=== PATIENT | female | born 1990 ===

== ENCOUNTER 2019-02-01 03:47 | Inpatient (IN) | payer BC ==
[2019-02-01] MEDS ORDERED: Butorphanol 1 MG/ML SDV IVPUSH PRN (17:22)
[2019-02-01] MEDS ORDERED: Misoprostol 200 MCG Tab PO PRN (17:22)
[2019-02-01] MEDS ORDERED: Carboprost Tromethamine 250 MCG/1 ML Amp IM PRN (17:22)
[2019-02-01] MEDS ORDERED: Sodium Chloride 0.9% 10 ML SDV IV PRN (17:22)
[2019-02-01] MEDS ORDERED: Sodium Chloride 0.9% 10 ML Syringe FLUSH PRN (17:22)
[2019-02-01] MEDS ORDERED: Water For Irrigation,Sterile 1,000 ML Container IRR PRN (17:22)
[2019-02-01] MEDS ORDERED: Sodium Chloride 0.9% 2.5 ML Syringe FLUSH PRN (17:22)
[2019-02-01] MEDS ORDERED: Ondansetron 4 MG/2 ML SDV IVPUSH PRN (17:22)
[2019-02-01] MEDS ORDERED: Lidocaine 1% 50 ML MDV INJECT PRN (17:22)
[2019-02-01] MEDS ORDERED: Tranexamic Acid 1,000 MG in Sodium Chloride 0.9% 100 ML IV PRN (17:22)
[2019-02-01] MEDS ORDERED: Methylergonovine 0.2 MG/1 ML Amp IM PRN (17:22)
[2019-02-01] MEDS ORDERED: Nalbuphine 10 MG/1 ML Vial IVPUSH PRN (17:22)
[2019-02-01] MEDS ORDERED: Terbutaline 1 MG/ML SDV SUBCUT PRN (17:26)
[2019-02-01] MEDS ORDERED: Oxytocin/0.9 % Sodium Chloride 30 UNIT/500 ML BAG IV SCH ×2 (17:30)
[2019-02-01] MEDS: Lactated Ringers 1,000 ML IV SCH (17:51)
[2019-02-01] MEDS ORDERED: Oxytocin/0.9 % Sodium Chloride 30 UNIT/500 ML BAG ONE (17:54)
--- NOTE | 2019-02-02 00:23 | PCM.PREANE ---
Preanesthetic Assessment - Anesthesia/Transfusion/Family Hx Anesthesia History: Prior Anesthesia Without Reaction Family History of Anesthesia Reaction: No Transfusion History: No Prior Transfusion(s) - Review of Systems General: No Symptoms Pulmonary: No Symptoms Cardiovascular: No Symptoms Gastrointestinal: No Symptoms Neurological: No Symptoms Other: Reports: None - Physical Assessment Height: 5 ft 7 in Weight: 108.862 kg ASA Class: 2 Mental Status: Alert & Oriented x3 Airway Class: Mallampati = 2 Dentition: Reports: Normal Dentition Thyro-Mental Finger Breadths: 3 Mouth Opening Finger Breadths: 3 ROM/Head Extension: Full Lungs: Clear to Auscultation, Normal Respiratory Effort Cardiovascular: Regular Rate, Regular Rhythm - Lab Values: Laboratory Last Values WBC 11.18 K/uL (4.0-11.0) H 02/01/19 17:40 RBC 4.18 M/uL (4.30-5.90) L 02/01/19 17:40 Hgb 13.0 g/dL (12.0-16.0) 02/01/19 17:40 Hct 38.0 % (36.0-46.0) 02/01/19 17:40 MCV 90.9 fL (80.0-98.0) 02/01/19 17:40 MCH 31.1 pg (27.0-32.0) 02/01/19 17:40 MCHC 34.2 g/dL (31.0-37.0) 02/01/19 17:40 RDW Std Deviation 46.5 fl (28.0-62.0) 02/01/19 17:40 RDW Coeff of Liz 14 % (11.0-15.0) 02/01/19 17:40 Plt Count 222 K/uL (150-400) 02/01/19 17:40 MPV 10.60 fL (7.40-12.00) 02/01/19 17:40 Nucleated RBC % 0.0 /100WBC 02/01/19 17:40 Nucleated RBCs # 0 K/uL 02/01/19 17:40 Blood Type O POSITIVE 02/01/19 17:40 Antibody Screen NEGATIVE 02/01/19 17:40 - Allergies Allergies/Adverse Reactions: Allergies Allergy/AdvReac Type Severity Reaction Status Date / Time No Known Allergies Allergy Verified 02/01/19 17:22 - Acknowledgements Anesthesia Type Planned: Epidural Pt an Appropriate Candidate for the Planned Anesthesia: Yes Alternatives and Risks of Anesthesia Discussed w Pt/Guardian: Yes Pt/Guardian Understands and Agrees with Anesthesia Plan: Yes PreAnesthesia Questionnaire - Past Health History Medical/Surgical History: Denies Medical/Surgical History HEENT History: Reports: None Cardiovascular History: Reports: None Respiratory History: Reports: None Gastrointestinal History: Reports: None Genitourinary History: Reports: None [employer] History: Reports: : 3 Para: 1 LMP (Approximate): Musculoskeletal History: Reports: None Neurological History: Reports: None Psychiatric History: Reports: None Endocrine/Metabolic History: Reports: Obesity/BMI 30+ Hematologic History: Reports: None Immunologic History: Reports: None Oncologic (Cancer) History: Reports: None Dermatologic History: Reports: None - Infectious Disease History 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) - Past Surgical History HEENT Surgical History: Reports: Tonsillectomy (2005) Other HEENT Surgeries/Procedures: 1995 Neck Cyst removed GI Surgical History: Reports: Cholecystectomy (2016) - SUBSTANCE USE Smoking Status *Q: Former Smoker Second Hand Smoke Exposure: No Recreational Drug Use History: No - CURRENT (IN HOUSE) MEDS Current Meds: Current Medications Butorphanol Tartrate (Stadol) 1 mg IVPUSH Q1H PRN PRN Reason: Pain Carboprost Tromethamine (Hemabate Ds) 250 mcg IM ASDIRECTED PRN PRN Reason: Post Hemorrhage Lactated Ringer's (Ringers, Lactated) 1,000 mls @ 150 mls/hr IV ASDIRECTED MONSE Last Admin: 02/01/19 17:51 Dose: 150 mls/hr Oxytocin/Sodium Chloride (Oxytocin 30 Unit/500 Ml-Ns) 30 unit in 500 mls @ 500 mls/hr IV TITRATE MONSE Tranexamic Acid 1,000 mg/ (Sodium Chloride) 110 mls @ 660 mls/hr IV ONETIME PRN PRN Reason: Bleeding Oxytocin/Sodium Chloride (Oxytocin 30 Unit/500 Ml-Ns) 30 unit in 500 mls @ 2 mls/hr IV TITRATE MONSE; Protocol Last Titration: 02/01/19 19:15 Dose: 8 munits/min, 8 mls/hr Lidocaine HCl (Xylocaine 1%) 50 ml INJECT ONETIME PRN PRN Reason: Laceration repair Methylergonovine Maleate (Methergine) 0.2 mg IM ASDIRECTED PRN PRN Reason: Post Hemorrhage Misoprostol (Cytotec) 200 mcg PO ONETIME PRN PRN Reason: Post Hemorrhage Nalbuphine HCl (Nubain) 10 mg IVPUSH Q1H PRN PRN Reason: Pain (severe 7-10) Ondansetron HCl (Zofran) 4 mg IVPUSH Q6H PRN PRN Reason: Nausea/Vomiting Sodium Chloride (Saline Flush) 10 ml FLUSH ASDIRECTED PRN PRN Reason: Keep Vein Open Sodium Chloride (Saline Flush) 2.5 ml FLUSH ASDIRECTED PRN PRN Reason: Keep Vein Open Sodium Chloride (Normal Saline) 10 ml IV ASDIRECTED PRN PRN Reason: IV Use Sterile Water (Sterile Water For Irrigation) 1,000 ml IRR ASDIRECTED PRN PRN Reason: delivery Terbutaline Sulfate (Brethine) 0.25 mg SUBCUT ASDIRECTED PRN PRN Reason: Tacysystole Discontinued Medications Oxytocin/Sodium Chloride (Oxytocin 30 Unit/500 Ml-Ns) Confirm Administered Dose 30 unit in 500 mls @ as directed .ROUTE .[facility] ONE Stop: 02/01/19 17:55
[2019-02-02] MEDS: Lactated Ringers 1,000 ML IV SCH ×2 (01:06→02:23)
[2019-02-02] MEDS ORDERED: Docusate Sodium 100 MG Cap PO PRN (04:24)
[2019-02-02] MEDS ORDERED: Witch Hazel Medicated Pads 40/Jar TOP PRN (04:24)
[2019-02-02] MEDS ORDERED: Acetaminophen 500 MG Tab PO PRN ×2 (04:24)
[2019-02-02] MEDS ORDERED: Bisacodyl 10 MG Supp RECTAL PRN (04:24)
[2019-02-02] MEDS ORDERED: Lanolin 100% Cream 7 GM Tube TOP PRN (04:24)
[2019-02-02] MEDS ORDERED: Ibuprofen 400 MG Tab PO PRN (04:24)
[2019-02-02] MEDS ORDERED: Benzocaine/Menthol 20%-0.5% Spray 78 GM Cannister TOP PRN (04:24)
--- NOTE | 2019-02-02 04:59 | OR ---
SURGEON: Kevin Mills MD DATE OF PROCEDURE: 02/02/2019 INDICATION: A 28-year-old G3, P1-0-1-1, admitted for elective induction of labor at 39 week 2 days. was complicated by history of HSV-2. No outbreaks during this . She had induction with Pitocin and spontaneous rupture of membranes. She received an epidural, with category I tracing. She progressed to fully dilated and started pushing with contractions. PREOPERATIVE DIAGNOSES: 1. Intrauterine at 39 weeks 2 days. 2. Active second stage of labor. POSTOPERATIVE DIAGNOSES: 1. Intrauterine at 39 weeks 2 days. 2. Active second stage of labor. PRIMARY SURGEON: Kevin Mills MD. ANESTHESIA: Epidural ESTIMATED BLOOD LOSS: 300 mL. FINDINGS: Gage intrauterine in cephalic presentation at 39 week and 2 days. Male fetus, weight of 8 pounds 14 ounces, score of 8 and 9. PROCEDURE IN DETAIL: The patient proceeded to push with contractions for about 35 minutes with good descend. Category I tracing with early decelerations. The head delivered over intact perineum in occiput anterior position, restituted ROT. Tight nuchal cord x1 was noted. Anterior shoulder was delivered easily followed by posterior shoulder and remaining body. Nuchal cord was reduced after delivery. Baby was pink and crying after delivery and moving all extremities. Baby was placed on maternal chest and assessed by awaiting nursery staff. The cord was clamped and cut after 60 seconds and no longer pulsating. Cord gases were obtained. Placenta was delivered by gentle traction on the umbilical cord. First-degree perineal laceration was noted and repaired with a figure of eight stitch with 3- 0 Vicryl. Hemostasis was confirmed. The uterus was found to be boggy in the lower uterine segment with moderate bleeding. Bimanual massage was performed and small clots removed from the lower uterine segment. Methergine x1 was given IM. The uterus then started to become firm and bleeding was minimal. The patient tolerated the procedure well and was given instructions. ISABELLE / OZZIE /[id number] MTDTalib
[2019-02-02] MEDS: Ibuprofen 800 MG Tab PO PRN ×2 (12:01→18:54)
--- NOTE | 2019-02-03 06:10 | PCM48HPAN ---
Post Anesthesia Note - EVALUATION WITHIN 48HRS OF ANESTHETIC Vital Signs in Normal Range: Yes Patient Participated in Evaluation: Yes Respiratory Function Stable: Yes Airway Patent: Yes Cardiovascular Function Stable: Yes Hydration Status Stable: Yes Pain Control Satisfactory: Yes Nausea and Vomiting Control Satisfactory: Yes Mental Status Recovered: Yes Vital Signs: Last Vital Signs Temp 36.4 C 02/03/19 04:11 Pulse 89 02/03/19 04:11 Resp 17 02/03/19 04:11 BP 124/77 02/03/19 04:11 Pulse Ox 97 02/03/19 04:11 - COMMENTS/OBSERVATIONS Free Text/Narrative:: The patient tolerated the procedure well. There were no apparent anesthetic complications at this time.
[2019-02-03] MEDS: Ibuprofen 800 MG Tab PO PRN (08:14)
--- NOTE | 2019-02-03 08:40 | PCM.PNPP ---
- General Info Date of Service: 02/03/19 Functional Status: Reports: Pain Controlled, Tolerating Diet, Ambulating, Urinating - Review of Systems General: Reports: No Symptoms HEENT: Reports: No Symptoms Pulmonary: Reports: No Symptoms Cardiovascular: Reports: No Symptoms Gastrointestinal: Reports: No Symptoms Genitourinary: Reports: No Symptoms Musculoskeletal: Reports: No Symptoms Skin: Reports: No Symptoms Neurological: Reports: No Symptoms Psychiatric: Reports: No Symptoms - General Info Date of Service: 02/03/19 - Patient Data Vital Signs - Most Recent: Last Vital Signs Temp 36.4 C 02/03/19 04:11 Pulse 89 02/03/19 04:11 Resp 17 02/03/19 04:11 BP 124/77 02/03/19 04:11 Pulse Ox 97 02/03/19 04:11 Weight - Most Recent: 108.862 kg Lab Results - Last 24 Hours: Laboratory Results - last 24 hr 02/03/19 Range/Units 05:09 Hgb 11.5 L (12.0-16.0) g/dL Hct 34.7 L (36.0-46.0) % Med Orders - Current: Current Medications Acetaminophen (Tylenol Extra Strength) 500 mg PO Q4H PRN PRN Reason: Pain Acetaminophen (Tylenol Extra Strength) 1,000 mg PO Q4H PRN PRN Reason: Pain Last Admin: 02/02/19 15:06 Dose: 1,000 mg Benzocaine/Menthol (Dermoplast Pain Relief 20%-0.5% [place]) 78 gm TOP ASDIRECTED PRN PRN Reason: Perineal Comfort Measure Last Admin: 02/02/19 16:07 Dose: 1 canister Bisacodyl (Dulcolax) 10 mg RECTAL ONETIME PRN PRN Reason: Constipation Butorphanol Tartrate (Stadol) 1 mg IVPUSH Q1H PRN PRN Reason: Pain Carboprost Tromethamine (Hemabate Ds) 250 mcg IM ASDIRECTED PRN PRN Reason: Post Hemorrhage Docusate Sodium (Colace) 100 mg PO BID PRN PRN Reason: Constipation Last Admin: 02/03/19 08:15 Dose: 100 mg Emollient Ointment (Lansinoh Hpa) 0 gm TOP ASDIRECTED PRN PRN Reason: Sore Nipples Lactated Ringer's (Ringers, Lactated) 1,000 mls @ 150 mls/hr IV ASDIRECTED MONSE Last Admin: 02/02/19 02:23 Dose: 150 mls/hr Oxytocin/Sodium Chloride (Oxytocin 30 Unit/500 Ml-Ns) 30 unit in 500 mls @ 500 mls/hr IV TITRATE MONSE Tranexamic Acid 1,000 mg/ (Sodium Chloride) 110 mls @ 660 mls/hr IV ONETIME PRN PRN Reason: Bleeding Oxytocin/Sodium Chloride (Oxytocin 30 Unit/500 Ml-Ns) 30 unit in 500 mls @ 2 mls/hr IV TITRATE [facility]; Protocol Last Titration: 02/02/19 03:48 Dose: 999 munits/min, 999 mls/hr Ibuprofen (Motrin) 400 mg PO Q4H PRN PRN Reason: Pain Ibuprofen (Motrin) 800 mg PO Q6H PRN PRN Reason: Pain Last Admin: 02/03/19 08:14 Dose: 800 mg Lidocaine HCl (Xylocaine 1%) 50 ml INJECT ONETIME PRN PRN Reason: Laceration repair Methylergonovine Maleate (Methergine) 0.2 mg IM ASDIRECTED PRN PRN Reason: Post Hemorrhage Last Admin: 02/02/19 03:59 Dose: 0.2 mg Misoprostol (Cytotec) 200 mcg PO ONETIME PRN PRN Reason: Post Hemorrhage Nalbuphine HCl (Nubain) 10 mg IVPUSH Q1H PRN PRN Reason: Pain (severe 7-10) Ondansetron HCl (Zofran) 4 mg IVPUSH Q6H PRN PRN Reason: Nausea/Vomiting Sodium Chloride (Saline Flush) 10 ml FLUSH ASDIRECTED PRN PRN Reason: Keep Vein Open Sodium Chloride (Saline Flush) 2.5 ml FLUSH ASDIRECTED PRN PRN Reason: Keep Vein Open Sodium Chloride (Normal Saline) 10 ml IV ASDIRECTED PRN PRN Reason: IV Use Sterile Water (Sterile Water For Irrigation) 1,000 ml IRR ASDIRECTED PRN PRN Reason: delivery Terbutaline Sulfate (Brethine) 0.25 mg SUBCUT ASDIRECTED PRN PRN Reason: Tacysystole Witch Angelita (Tucks) 1 pad TOP ASDIRECTED PRN PRN Reason: comfort care Discontinued Medications Oxytocin/Sodium Chloride (Oxytocin 30 Unit/500 Ml-Ns) Confirm Administered Dose 30 unit in 500 mls @ as directed .ROUTE .[facility]-MED ONE Stop: 02/01/19 17:55 Fentanyl/Bupivacaine HCl (Olqdnsuo-Chlat-Mq 2 Mcg/Ml-0.125%) Confirm Administered Dose 100 mls @ as directed .ROUTE .[facility]-MED ONE Stop: 02/02/19 00:26 - Interaction Disposition, : in Room with Family Infant Interaction: Holding Feeding: Breastfed ; Nursed Well - Recovery Exam Fundal Tone: Firms with Massage Fundal Level: At Umbilicus Fundal Placement: Midline Lochia Amount: Scant, Small Lochia Color: Rubra/Red Episiotomy/Laceration: Approximated Bladder Status: Voiding - Exam General: Alert, Oriented HEENT: Pupils Equal Neck: Supple Lungs: Normal Respiratory Effort Cardiovascular: Regular Rhythm GI/Abdominal Exam: Soft, No Organomegaly, No Distention Extremities: Normal Inspection, Non-Tender, No Pedal Edema Skin: Warm, Dry, Intact Neurological: No New Focal Deficit Psy/Mental Status: Alert, Normal Affect, Normal Mood - Problem List Review Problem List Initiated/Reviewed/Updated: Yes - Assessment Assessment:: PPD# 1 after , stable minimal lochia, tolerating diet, would like to go home today. - Plan Plan:: Dismiss to home, discharge instructions reviewed.
== END 2019-02-03 11:55 | disposition home or self-care (01) | DRG 560 ==
LOC: MW.OB 03:47 → OBSVTOIN 02-02 03:47 → INTOOBSV 02-02 03:51 → MW.OB 02-02 06:44
PROVIDERS: ADMIT Obstetrics & Gynecology; ATTEND Obstetrics & Gynecology
PROC: 10E0XZZ Delivery of Products of Conception, External Approach (ICD-10-PCS; principal; 2019-02-02)
PROC: 0HQ9XZZ Repair Perineum Skin, External Approach (ICD-10-PCS; 2019-02-02)
PROC: 3E0R3BZ Introduction of Anesthetic Agent into Spinal Canal, Percutaneous Approach (ICD-10-PCS; 2019-02-02)
PROC: 3E033VJ Introduction of Other Hormone into Peripheral Vein, Percutaneous Approach (ICD-10-PCS; 2019-02-02)
DX: O69.81X0 Labor and delivery complicated by cord around neck, without compression, not applicable or unspecified (principal); O99.214 Obesity complicating childbirth; O76 Abnormality in fetal heart rate and rhythm complicating labor and delivery; O70.0 First degree perineal laceration during delivery; Z37.0 Single live birth; Z90.49 Acquired absence of other specified parts of digestive tract; Z90.89 Acquired absence of other organs; Z87.891 Personal history of nicotine dependence; Z3A.39 39 weeks gestation of pregnancy
CPT/HCPCS: 36415; 51702; 59025; 59409; 85014; 85018; 85027; 86850; 86900; 86901; A9270-GY; J2210; J2590; J7120